=== PATIENT | female | born 1945 | race Two or more races ===

== ENCOUNTER 2016-10-23 09:37 | Emergency (ER) | payer MEDICARE, OTHER ==
[~2016-10-23] VITALS: Ht 162.6 cm; Wt 81.6 kg
[2016-10-23 09:37] VITALS: BP 137/80
[2016-10-23] MEDS ORDERED: IBUPROFEN 600 MG TABLET PO ONE ×2 (10:00→10:01)
[2016-10-23] MEDS ORDERED: TDAP [DIPH/PERTUSSIS/TET] 0.5 ML VIAL IM ONE ×2 (10:00→10:02)
== END 2016-10-23 10:12 | disposition home or self-care (01) ==
LOC: ER 09:40
DX: S61.211A Laceration without foreign body of left index finger without damage to nail, initial encounter (principal); L08.9 Local infection of the skin and subcutaneous tissue, unspecified; I10 Essential (primary) hypertension; M19.90 Unspecified osteoarthritis, unspecified site; Z23 Encounter for immunization; W26.8XXA Contact with other sharp object(s), not elsewhere classified, initial encounter; Y93.89 Activity, other specified; Y92.89 Other specified places as the place of occurrence of the external cause; Y99.9 Unspecified external cause status
CPT/HCPCS: 90471; 90715; 99283; A4606; Z7610